=== PATIENT | male | born 1995 ===

== ENCOUNTER 2017-06-18 18:29 | Emergency (ER) | payer SELFPAY ==
[2017-06-18 18:46] VITALS: TEMP 98.2; O2SAT 100
--- NOTE | 2017-06-18 19:29 | ED PDOC ---
Arrival/HPI <Petros Rhoades - Last Filed: 06/18/17 20:19> <Steven Alcantara - Last Filed: 06/18/17 20:31> - General Chief Complaint: Seizure Time Seen by Provider: 06/18/17 19:09 - History of Present Illness Narrative History of Present Illness (Text): 06/18/17 19:25 CC: four episodes of seizures Citizen Of [place] Speaking only This patient is a 21 year old male who is a PMhx of epilepsy, who states he had four seizures today. He says they were witnessed by his grandmother, who is not at the bedside to confer the story. He states he has not been to a doctor in "many years" and has been taking carbamazepine TIDmg. He states he was lifting a heavy box at work today, started to have back pain, and after that had "four episodes of seizures". denies biting tongue, urination, defecation. States pain is in his mid back only, does not radiate anywhere. Continent of urine and feces. denies all other symptoms; fevers/chills, EDWARD, CP, SOb, abdominal pain, N/ V/D, dysuria/freq/urg, or lower extremity pain/swelling. Patient is able to ambulate without problem. 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; denies EtOH, smoking, or other illicit drugs (Petros Rhoades) Past Medical History - Provider Review Nursing Documentation Reviewed: Yes - Travel History Have you recently traveled outside [place] w/in the past 3 mons?: No - Infectious Disease Hx of Infectious Diseases: None - Neurological Hx Seizures: Yes - Musculoskeletal/Rheumatological Other/Comment: CP - Psychiatric Hx Substance Use: No <Petros Rhoades - Last Filed: 06/18/17 20:19> Family/Social History - Physician Review Nursing Documentation Reviewed: Yes Family/Social History: No Known Family HX Smoking Status: Never Smoked Hx Alcohol Use: No Hx Substance Use: No <Petros Rhoades - Last Filed: 06/18/17 20:19> Allergies/Home Meds <Petros Rhoades - Last Filed: 06/18/17 20:19> <Steven Alcantara - Last Filed: 06/18/17 20:31> Allergies/Adverse Reactions: Allergies No Known Allergies Allergy (Verified 06/18/17 18:46) Home Medications: Home Meds Medication Instructions Recorded Confirmed carBAMazepine [TEGretol] 200 mg PO TID 06/18/17 06/18/17 Review of Systems - Review of Systems Constitutional: absent: Fatigue, Weight Change Eyes: absent: Vision Changes, Photophobia ENT: absent: Hearing Changes, Tinnitus Respiratory: absent: SOB, Cough, Sputum Cardiovascular: absent: Chest Pain Gastrointestinal: absent: Abdominal Pain Genitourinary Male: absent: Dysuria, Frequency Musculoskeletal: absent: Arthralgias, Back Pain Skin: absent: Rash, Pruritis Neurological: Seizure. absent: Headache, Dizziness, Focal Weakness, Gait Changes, Speech Changes, Facial Droop, Disequilibrium Endocrine: absent: Diaphoresis, Polyuria Hemo/Lymphatic: absent: Adenopathy, Easy Bleeding Psychiatric: absent: Anxiety, Depression <Petros Rhoades - Last Filed: 06/18/17 20:19> Physical Exam Temperature: Afebrile Blood Pressure: Normal Pulse: Regular Respiratory Rate: Normal Appearance: Positive for: Well-Appearing Mental Status: Positive for: Alert and Oriented X 3 - Systems Exam Head: Present: Atraumatic, Normocephalic Pupils: Present: PERRL Extroacular Muscles: Present: EOMI Conjunctiva: Present: Normal Mouth: Present: Moist Mucous Membranes Neck: Present: Normal Range of Motion. No: Meningeal Signs Respiratory/Chest: Present: Clear to Auscultation, Good Air Exchange Cardiovascular: Present: Regular Rate and Rhythm, Normal S1, S2. No: Murmurs Abdomen: Present: Normal Bowel Sounds. No: Tenderness, Distention Back: No: CVA Tenderness Upper Extremity: Present: Normal Inspection. No: Cyanosis, Edema Lower Extremity: Present: Normal Inspection. No: Edema Neurological: Present: GCS=15, CN II-XII Intact Skin: Present: Warm Psychiatric: Present: Alert, Oriented x 3, Normal Insight, Normal Concentration , Normal Affect. No: Suicidal Ideation, Intoxicated, Lethargic <Petros Rhoades - Last Filed: 06/18/17 20:19> Medical Decision Making <Petros Rhoades - Last Filed: 06/18/17 20:19> <Steven Alcantara - Last Filed: 06/18/17 20:31> ED Course and Treatment: 06/18/17 19:32 Will check carbamazepine level, CBC CPK CMP Mag Phos patient is able to ambulate without problem speaking coherently re-assess and dispo Therapeutic concentrations of carbamazepine range from 4 to 12 mcg/mL (17 to 51 micromol/L). ddx; break through seizures vs low carbamazepine level vs seeking primary care 06/18/17 19:57 CBC WNL 06/18/17 20:07 Carbamezepine level is 10 CMP wnl CPK WNL 06/18/17 20:15 The patient is stable for d/c as per Dr. Alcantara The patient was lifting a heavy box earlier at work and has back pain the patient was told to take ibuprofen OTC for back pain as it is indicated on the bottle he was agreeable with this plan He was told to set up an appointment at the [facility] [place] [facility] [place], and for neurology follow up afterwords (Petros Rhoades) - Lab Interpretations Lab Results: 06/18/17 18:51 06/18/17 18:51 Lab Results 06/18/17 18:51: Carbamazepine 10 06/18/17 18:51: Sodium 141, Potassium 4.4, Chloride 96, Carbon Dioxide 31, Anion Gap 18, BUN 11, Creatinine 0.8, Est GFR ( Amer) > 60, Est GFR (Non- Af Amer) > 60, Random Glucose 91, Calcium 9.5, Phosphorus 5.2 H, Magnesium 2.0, Total Bilirubin 0.4, AST 40, ALT 42, Alkaline Phosphatase 54, Total Creatine Kinase 128, Total Protein 9.1 H, Albumin 5.0 H, Globulin 4.1, Albumin/Globulin Ratio 1.2 06/18/17 18:51: WBC 9.8, RBC 5.10, Hgb 16.3, Hct 45.5, MCV 89.2, MCH 32.0, MCHC 35.8, RDW 12.3, Plt Count 290, MPV 10.1 - 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 YAMEL has examined the patient and agrees with the treatment plan. <Steven Alcantara - Last Filed: 06/18/17 20:31> Disposition/Present on Arrival - Present on Arrival Any Indicators Present on Arrival: No History of DVT/PE: No History of Uncontrolled Diabetes: No Urinary Catheter: No History of Decub. Ulcer: No History Surgical Site Infection Following: None - Disposition Have Diagnosis and Disposition been Completed?: Yes Disposition Time: 20:20 Patient Plan: Discharge <Petros Rhoades - Last Filed: 06/18/17 20:19> <Steven Alcantara - Last Filed: 06/18/17 20:31> - Disposition Diagnosis: Back pain Disposition: HOME/ ROUTINE Condition: FAIR Discharge Instructions (ExitCare): Back Pain (ED) Additional Instructions: Por favor, jayy angelic shree en el [facility] aqui en el [facility] hospital. [place] es [phone] Ellos van ayudarte con todos los medicos que va necesitar despues tambien Eve romero medicamento shane esta indicado Prescriptions: Ibuprofen [Motrin Tab] 600 mg PO TID PRN #20 tab PRN Reason: Pain, Mild (1-3) Referrals: PCP,NO [Primary Care Provider] - Follow up with primary Forms: [place] (Citizen Of [place])
[2017-06-18 19:46] LABS: HEMOGLOBIN 16.3 gm/dL (14.0-18.0); MEAN CELL VOLUME 89.2 fL (80.0-105.0); MEAN CORPUSCULAR HGB CONC 35.8 g/dl (31.0-37.0); MEAN PLATELET VOLUME 10.1 fl (7.0-11.0); RBC 5.1 10^6/uL (3.5-6.1); RED CELL DISTRIBUTION WIDTH 12.3 % (11.5-14.5); WHITE BLOOD COUNT 9.8 10^3/ul (4.5-11.0)
[2017-06-18 19:56] LABS: ALB/GLOB RATIO 1.2 (1.1-1.8); ALT/SGPT 42 U/L (7-56); AST/SGOT 40 U/L (15-59); BLOOD UREA NITROGEN 11 mg/dL (7-21); CALCIUM 9.5 mg/dL (8.4-10.5); GFR AFRICAN-AMERICAN > 60; GFR NON-AFRICAN AMERICAN > 60
[2017-06-18 20:40] VITALS: BP 131/73; PULSE 71; RESP 18
== END 2017-06-18 20:38 | disposition home or self-care (01) ==
LOC: ED 18:29
DX: M54.9 Dorsalgia, unspecified (principal)

== ENCOUNTER 2017-11-25 07:25 | Emergency (ER) | payer OTHER ==
[2017-11-25] MEDS ORDERED: Sodium Chloride 0.9% 500 ML IV STA (08:04)
--- NOTE | 2017-11-25 08:07 | ED PDOC ---
Arrival/HPI - General Chief Complaint: Seizure Time Seen by Provider: 11/25/17 07:59 Historian: Patient, Parent (mother) EM Caveat: Language Barrier (scribe translating) - History of Present Illness Narrative History of Present Illness (Text): 11/25/17 08:00 Artur White is a 22 year old male, whose past medical history includes seizure disorder (on Keppra and Tegretol), who presents to the emergency department accompanied with mother s/p seizure episode at 04:00 this morning. Mother reports last seizure occurred on 10/09/2017. Additionally, she states patient has not seen a neurologist. The episode lasted about 2 minutes and patient became alert 2 minutes s/p the seizure episode. Mother notes the seizure occurred while patient was in bed. Currently patient has no complaints. Patient denies prodromal chest pain, shortness of breath, dizziness, lightheadedness or palpitations. Patient denies any chest pain, shortness of breath, headache, nausea, vomiting, diarrhea, fever, chills, cough, visual changes, tongue biting , bowel/bladder incontinence or head injury. Time/Duration: Prior to Arrival, 1-3 hours Symptom Onset: Sudden Symptom Course: Improving Activities at Onset: Rest Context: Home Past Medical History - Provider Review Nursing Documentation Reviewed: Yes - Travel History Have you recently traveled outside US w/in the past 3 mons?: No - Past History Past History: No Previous - Infectious Disease Hx of Infectious Diseases: None - Neurological Hx Seizures: Yes - Musculoskeletal/Rheumatological Other/Comment: CP - Psychiatric Hx Substance Use: No Family/Social History - Physician Review Nursing Documentation Reviewed: Yes Family/Social History: Unknown Family HX Smoking Status: Never Smoked Hx Alcohol Use: No Hx Substance Use: No Allergies/Home Meds Allergies/Adverse Reactions: Allergies No Known Allergies Allergy (Verified 06/18/17 18:46) Home Medications: Home Meds Medication Instructions Recorded Confirmed carBAMazepine [TEGretol] 400 mg PO BID 06/18/17 11/25/17 Levetiracetam [Roweepra] 1,000 mg PO BID 11/25/17 11/25/17 Review of Systems - Review of Systems Constitutional: absent: Fevers Eyes: absent: Vision Changes Respiratory: absent: SOB, Cough Cardiovascular: absent: Chest Pain Gastrointestinal: absent: Abdominal Pain Genitourinary Male: absent: Dysuria, Frequency, Urinary Output Changes Musculoskeletal: absent: Neck Pain Neurological: Seizure. absent: Headache, Dizziness Physical Exam Vital Signs Reviewed: Yes (WNL) Vital Signs Temp Pulse Resp BP Pulse Ox 11/25/17 11:09 79 18 122/75 97 11/25/17 08:09 98.7 F 88 16 124/89 99 Temperature: Afebrile Blood Pressure: Normal Pulse: Regular Respiratory Rate: Normal Appearance: Positive for: Well-Appearing, Non-Toxic, Comfortable, Other ( resting in bed, NAD, alert/awake, GCS = 15, oriented x 3) Pain Distress: None Mental Status: Positive for: Alert and Oriented X 3 - Systems Exam Head: Present: Atraumatic, Normocephalic Pupils: Present: PERRL, Other (no photophobia, sclera anicteric, no nystagmus, visual field intact b/l) Extroacular Muscles: Present: EOMI Conjunctiva: Present: Normal Ears: Present: Normal, NORMAL TM Mouth: Present: Moist Mucous Membranes, Normal Teeth, Other (no tongue laceration/abrasions noted, uvula/tongue are midline, no drooling/stridor; intact dentitions) Pharnyx: Present: Normal Nose (External): Present: Atraumatic Neck: Present: Normal Range of Motion, Trachea Midline. No: MIDLINE TENDERNESS Respiratory/Chest: Present: Clear to Auscultation, Good Air Exchange, Other ( CTA b/l, no w/r/r, no tachypenia, no accessory muscle use noted). No: Respiratory Distress, Accessory Muscle Use Cardiovascular: Present: Regular Rate and Rhythm, Normal S1, S2. No: Murmurs Abdomen: Present: Normal Bowel Sounds, Other (well nourished male, no focal tenderness, no masses/rebound/guarding/rigidity, no gardner's sign, no mcburney' s point tenderness). No: Tenderness, Distention, Peritoneal Signs Back: Present: Normal Inspection. No: Midline Tenderness Upper Extremity: Present: Normal Inspection, Normal ROM, NORMAL PULSES, Neurovascularly Intact, Capillary Refill < 2s. No: Cyanosis, Edema Lower Extremity: Present: Normal Inspection, NORMAL PULSES, Normal ROM, Neurovascularly Intact, Capillary Refill < 2 s. No: Edema Neurological: Present: GCS=15, CN II-XII Intact, Speech Normal, Normal Cerebellar Funct, Other (CNII-XII WNL, no facial asymmetries, no slurr speech, NIH stroke scale ~ 0) Skin: Present: Warm, Dry, Normal Color. No: Rashes Psychiatric: Present: Alert, Oriented x 3, Normal Insight, Normal Concentration Medical Decision Making ED Course and Treatment: 11/25/17 Impression: 22 year old male with seizure episode at 04:00 this morning. Patient's currently on Keppra I have considered all Differential Diagnosis regarding pt's chief medical complaints/clinical findings included but are not limited to: recurrent seizure; medication non-compliance?; unlikely traumatic; unlikely meningitis. 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 Prajapati who is the on-call neurologist. He recommends patient to follow up with Dr. Robles who is located in [place]. He currently does not recommend any dosage or frequency changes in pt's medication, however patient should f.u with outpatient neuro as soon as possible. patient agrees with medical management. 11/25/17 12:07 pt/mother are made aware of pt's medical results pt is encouraged fluids pt will f/u as directed pt will be discharged home Re-evaluation Time: 10:01 Reassessment Condition: Improved - Lab Interpretations Lab Results: 11/25/17 08:30 11/25/17 08:30 Lab Results 11/25/17 10:30: Influenza Typ A,B (EIA) Negative for flu a/b 11/25/17 08:30: Carbamazepine 13 H* 11/25/17 08:30: Sodium 141, Potassium 4.9, Chloride 101, Carbon Dioxide 28, Anion Gap 17, BUN 7, Creatinine 0.7 L, Est GFR ( Amer) > 60, Est GFR (Non -Af Amer) > 60, Random Glucose 100, Calcium 10.3, Total Bilirubin 0.4, AST 40, ALT 38, Alkaline Phosphatase 59, Total Protein 8.6 H, Albumin 5.0 H, Globulin 3.6, Albumin/Globulin Ratio 1.4 11/25/17 08:30: WBC 7.9, RBC 5.10, Hgb 15.6, Hct 45.9, MCV 90.0, MCH 30.6, MCHC 34.0, RDW 12.2, Plt Count 272, MPV 10.3, Gran % 77.6 H, Lymph % (Auto) 17.2 L, [place] % (Auto) 4.7, Eos % (Auto) 0.4 L, Baso % (Auto) 0.1, Gran # 6.12, Lymph # 1.4, [place] # 0.4, Eos # 0.0, Baso # 0.01 WNL except elevated tegretol I have reviewed the lab results: Yes Interpretation: Abnormal lab values - Medication Orders Current Medication Orders: Discontinued Medications Sodium Chloride (Sodium Chloride 0.9%) 500 mls @ 999 mls/hr IV .Q31M STA Stop: 11/25/17 08:34 Last Admin: 11/25/17 08:37 Dose: 999 mls/hr eMAR Start Stop Document 11/25/17 08:37 MS (Rec: 11/25/17 08:38 MS [id number]) Intravenous Solution Start Date 11/25/17 Start Time 08:37 - Scribe Statement The provider has reviewed the documentation as recorded by the Andressa Day Provider Scribe Attestation: All medical record entries made by the Scribe were at my direction and personally dictated by me. I have reviewed the chart and agree that the record accurately reflects my personal performance of the history, physical exam, medical decision making, and the department course for this patient. I have also personally directed, reviewed, and agree with the discharge instructions and disposition. Disposition/Present on Arrival - Present on Arrival Any Indicators Present on Arrival: No History of DVT/PE: No History of Uncontrolled Diabetes: No Urinary Catheter: No History Surgical Site Infection Following: None - Disposition Have Diagnosis and Disposition been Completed?: Yes Diagnosis: Recurrent seizures Disposition: HOME/ ROUTINE Disposition Time: 10:01 Patient Plan: Discharge Patient Problems: Current Active Problems Problem Status Onset Recurrent seizures Acute Condition: STABLE Discharge Instructions (ExitCare): Recurrent Seizures in Adults (ED) Print Language: BELARUSIAN Additional Instructions: Make sure to see your doctor in 1-2 days DRINK PLENTY OF FLUIDS take your medications as prescribed RETURN TO ED IF worse pain, cant breath, persistent vomiting, persistent headaches, persistent seizures; high fever >101-102 for hours, altered behavior , unable to urinate, heavy/persistent bleeding, passing out, chest pain, or other medical emergencies Referrals: Florentin Prajapati MD [Staff Provider] - Follow up with primary Kevin Robles MD [Staff Provider] - Follow up with primary Forms: [employer] ([place]), Behavio (Russian)
[2017-11-25 08:09] VITALS: BMI 21.8
[2017-11-25 08:13] VITALS: TEMP 98.7
[2017-11-25 09:01] LABS: BASO # 0.01 K/mm3 (0.0-2.0); BASO % 0.1 % (0.0-3.0); EOS % 0.4 % (1.5-5.0); GRAN # 6.12 (1.4-6.5); GRAN % 77.6 % (50.0-68.0); HEMOGLOBIN 15.6 g/dL (14.0-18.0); LYMPH # 1.4 (1.2-3.4); LYMPH % 17.2 % (22.0-35.0); MEAN CORPUSCULAR HEMOGLOBIN 30.6 pg (25.0-35.0); MEAN PLATELET VOLUME 10.3 fl (7.0-11.0); MONO # 0.4 (0.1-0.6); MONO % 4.7 % (1.0-6.0); RBC 5.1 10^6/uL (3.5-6.1); RED CELL DISTRIBUTION WIDTH 12.2 % (11.5-14.5); WHITE BLOOD COUNT 7.9 10^3/ul (4.5-11.0)
[2017-11-25 09:12] LABS: ALT/SGPT 38 U/L (7-56); AST/SGOT 40 U/L (17-59); BLOOD UREA NITROGEN 7 mg/dL (7-21); CALCIUM 10.3 mg/dL (8.4-10.5); GFR AFRICAN-AMERICAN > 60; GFR NON-AFRICAN AMERICAN > 60
[2017-11-25 09:15] LABS: ALB/GLOB RATIO 1.4 (1.1-1.8)
[2017-11-25 12:04] VITALS: BP 140/88; PULSE 70; RESP 16; O2SAT 99
[2017-11-25 23:10] LABS: URINE BILIRUBIN NEGATIVE (NEGATIVE); URINE BLOOD NEGATIVE (NEGATIVE); URINE GLUCOSE (UA) NEGATIVE (NEGATIVE); URINE LEUKOCYTE ESTERASE NEGATIVE Leu/uL (NEGATIVE); URINE NITRATE NEGATIVE (NEGATIVE); URINE PROTEIN NEGATIVE mg/dL (<30 mg/dL); URINE UROBILINOGEN 0.2 E.U./dL (<1 E.U./dL)
[2017-11-25 23:16] LABS: URINE APPEARANCE CLEAR (CLEAR); URINE COLOR YELLOW (YELLOW)
[2017-11-28 07:56] LABS: LEVETIRACETAM 29.2 mcg/mL
== END 2017-11-25 12:04 | disposition home or self-care (01) ==
LOC: ED 07:25
DX: G40.909 Epilepsy, unspecified, not intractable, without status epilepticus (principal)
CPT/HCPCS: 80053; 80156; 80299; 81003; 85025; 87804; 99285; J7040

== ENCOUNTER 2018-03-09 21:22 | Inpatient (IN) | payer MEDICAID, OTHER ==
[2018-03-09 21:36] VITALS: O2SAT 100
[2018-03-09 21:56] VITALS: BMI 24.0
[2018-03-09] MEDS ORDERED: Sodium Chloride 0.9% 1,000 ML IV STA (22:09)
--- NOTE | 2018-03-09 22:13 | ED PDOC ---
Arrival/HPI - General Chief Complaint: Seizure Time Seen by Provider: 03/09/18 21:35 Historian: Patient, Parent EM Caveat: Language Barrier (Sapnish Speaking) - History of Present Illness Narrative History of Present Illness (Text): 03/09/18 22:10 22 year old male, whose past medical history includes seizure disorder (on Keppra and Levetiracetam) and history of 3 hodge in the past, presents to the emergency department s/p seizure-like activity today. Patient does not speak any Malagasy and is accompanied with mother who also does not speak any Malagasy. They recently moved to the [facility] 8 months ago and has [place] [facility] [place], but never admitted. [place] [facility] [place], but can not recall the specific date. Patient only takes seizure medication, and denies any other medication. Patient denies any fever, chills, chest pain, shortness of breath, abdominal pain, nausea, vomiting, diarrhea, urinary symptoms, back pain, neck pain, headache, dizziness, or any other complaints. Time/Duration: 1 hour Symptom Onset: Sudden Activities at Onset: Light Context: Home Past Medical History - Provider Review Nursing Documentation Reviewed: Yes - Past History Past History: No Previous - Infectious Disease Hx of Infectious Diseases: None - Cardiac Hx Cardiac Disorders: No - Pulmonary Hx Respiratory Disorders: No - Neurological Hx Neurological Disorder: Yes HX Cerebrovascular Accident: Yes (3 strokes) Hx Seizures: Yes - HEENT Hx HEENT Disorder: No - Renal Hx Renal Disorder: No - Endocrine/Metabolic Hx Endocrine Disorders: No - Hematological/Oncological Hx Blood Disorders: No - Integumentary Hx Dermatological Disorder: No - Musculoskeletal/Rheumatological Hx Musculoskeletal Disorders: Yes Other/Comment: CP - Gastrointestinal Hx Gastrointestinal Disorders: No - Genitourinary/Gynecological Hx Genitourinary Disorders: No - Psychiatric Hx Psychophysiologic Disorder: No Hx Substance Use: No Family/Social History - Physician Review Nursing Documentation Reviewed: Yes Family/Social History: No Known Family HX Smoking Status: Never Smoked Hx Alcohol Use: No Hx Substance Use: No Allergies/Home Meds Allergies/Adverse Reactions: Allergies No Known Allergies Allergy (Verified 03/09/18 22:00) Review of Systems - Physician Review All systems were reviewed & negative as marked: Yes - Review of Systems Constitutional: absent: Fevers, Other (Chills) Respiratory: absent: SOB Cardiovascular: absent: Chest Pain Gastrointestinal: absent: Abdominal Pain, Diarrhea, Nausea, Vomiting Genitourinary Male: absent: Dysuria, Frequency, Hematuria Neurological: Seizure (Seizure like symptoms). absent: Headache, Dizziness Physical Exam Vital Signs Reviewed: Yes Vital Signs Temp Pulse Resp BP Pulse Ox 03/10/18 02:00 98.2 F 72 18 120/67 100 03/09/18 21:35 98.2 F 69 18 132/57 L 100 Temperature: Afebrile Blood Pressure: Normal Pulse: Regular Respiratory Rate: Normal Appearance: Positive for: Well-Appearing, Non-Toxic, Comfortable Pain Distress: None Mental Status: Positive for: Alert and Oriented X 3 - Systems Exam Head: Present: Atraumatic, Normocephalic Pupils: Present: PERRL Extroacular Muscles: Present: EOMI Conjunctiva: Present: Normal Mouth: Present: Moist Mucous Membranes Neck: Present: Normal Range of Motion Respiratory/Chest: Present: Clear to Auscultation, Good Air Exchange. No: Respiratory Distress, Accessory Muscle Use Cardiovascular: Present: Regular Rate and Rhythm, Normal S1, S2. No: Murmurs Abdomen: No: Tenderness, Distention, Peritoneal Signs Back: Present: Normal Inspection Upper Extremity: Present: Normal Inspection. No: Cyanosis, Edema Lower Extremity: Present: Normal Inspection. No: Edema Neurological: Present: GCS=15, CN II-XII Intact, Speech Normal Skin: Present: Warm, Dry, Normal Color. No: Rashes Psychiatric: Present: Alert, Oriented x 3, Normal Insight, Normal Concentration Medical Decision Making ED Course and Treatment: 03/09/18 22:00 Impression: 22 year old male presents for evaluation s/p seizure like symptoms. Patient has past medical history of 3 hodge in the past and seizure disorder (on Keppra and Levetiracetam) Plan: -- CT head w/o contrast -- Labs -- Levetiracetam -- IV Fluids -- Urinalysis -- Reassess and disposition Prior Visits: Notes and results from previous visits were reviewed. On 11/25/17 patient came in complaining of seizure episode this morning. Patient was discharged. Progress Notes: EXAM: CT Head Without Intravenous Contrast Dictated and Authenticated by: Dian Hsieh MD 03/09/2018 11:19 PM IMPRESSION: Large area of low density in the left cerebral hemisphere with associated ex vacuo dilatation of the left lateral ventricle likely represents encephalomalacia from prior infarct. No hemorrhage. 03/10/18 00:20 Case discussed with Cvicu Rn and Dr. Heredia who is aware and agrees with the plan. Accepts patient into his service. - Lab Interpretations Lab Results: 03/09/18 23:05 03/09/18 23:05 Lab Results 03/09/18 23:05: Phosphorus 4.8 H, Magnesium 2.0 03/09/18 23:05: Alcohol, Quantitative < 10 03/09/18 23:05: Carbamazepine 13 H* 03/09/18 23:05: Sodium 138, Potassium 4.0, Chloride 99, Carbon Dioxide 25, Anion Gap 18, BUN 11, Creatinine 0.8, Est GFR ( Amer) > 60, Est GFR (Non- Af Amer) > 60, Random Glucose 89, Calcium 9.2, Total Bilirubin 0.3, AST 28, ALT 34, Alkaline Phosphatase 50, Total Protein 8.2, Albumin 4.7, Globulin 3.5, Albumin/Globulin Ratio 1.3 03/09/18 23:05: PT 15.0 H, INR 1.31 H 03/09/18 23:05: WBC 10.3 D, RBC 4.85, Hgb 14.9, Hct 42.6, MCV 87.8, MCH 30.7, MCHC 35.0, RDW 12.1, Plt Count 240, MPV 10.0, Gran % 71.4 H, Lymph % (Auto) 21.8 L, Tate % (Auto) 4.6, Eos % (Auto) 2.1, Baso % (Auto) 0.1, Gran # 7.36 H, Lymph # (Auto) 2.3, Tate # (Auto) 0.5, Eos # (Auto) 0.2, Baso # (Auto) 0.01 I have reviewed the lab results: Yes - RAD Interpretation Radiology Orders: 03/09/18 22:12 HEAD W/O CONTRAST [CT] Stat - Medication Orders Current Medication Orders: Discontinued Medications Sodium Chloride (Sodium Chloride 0.9%) 1,000 mls @ 999 mls/hr IV .Q1H1M STA Stop: 03/09/18 23:09 Last Admin: 03/09/18 23:09 Dose: 999 mls/hr eMAR Start Stop Document 03/09/18 23:09 HI (Rec: 03/09/18 23:09 HI [id number]) Intravenous Solution Start Date 03/09/18 Start Time 23:09 Sodium Chloride (Sodium Chloride 0.9%) 1,000 mls @ 999 mls/hr IV .Q1H1M STA Stop: 03/10/18 02:40 Last Admin: 03/10/18 02:26 Dose: 999 mls/hr eMAR Start Stop Document 03/10/18 02:26 LEONEL (Rec: 03/10/18 02:26 LEONEL [id number] Intravenous Solution Start Date 03/10/18 Start Time 02:26 Levetiracetam 1,000 mg/ Sodium (Chloride) 110 mls @ 460 mls/hr IV Q12 ALEXANDRA Last Admin: 03/10/18 10:42 Dose: 460 mls/hr eMAR Start Stop Document 03/10/18 10:42 JA (Rec: 03/10/18 10:42 JA [id number]) Intravenous Solution Start Date 03/10/18 Start Time 10:42 Levetiracetam 1,500 mg/ Sodium (Chloride) 115 mls @ 460 mls/hr IV Q12 ALEXANDRA Last Admin: 03/12/18 09:52 Dose: 460 mls/hr eMAR Start Stop Document 03/12/18 09:52 MCV (Rec: 03/12/18 09:52 MCV [id number]) Intravenous Solution Start Date 03/12/18 Start Time 09:52 Sodium Chloride (Sodium Chloride 0.9%) 1,000 mls @ 75 mls/hr IV .[id number] ALEXANDRA Last Admin: 03/11/18 05:52 Dose: 75 mls/hr eMAR Start Stop Document 03/11/18 05:52 CO (Rec: 03/11/18 05:53 CO [id number]) Intravenous Solution Start Date 03/11/18 Start Time 05:53 Lorazepam (Ativan) 3 mg IVP Q6H PRN; Protocol PRN Reason: Seizure activity Pantoprazole Sodium (Protonix Inj) 40 mg IVP DAILY ALEXANDRA Last Admin: 03/12/18 09:52 Dose: 40 mg IVP Administration Document 03/12/18 09:52 MCV (Rec: 03/12/18 09:52 [id number]) Charges for Administration # of IVP Administrations 1 Valproate Sodium (Depakene Cap) 500 mg PO DAILY [facility] Last Admin: 03/10/18 16:15 Dose: Valproate Sodium (Depakene Cap) 500 mg PO BID [facility] Valproate Sodium (Depakene Cap) 500 mg PO BID [facility] Last Admin: 03/12/18 17:28 Dose: 500 mg - Scribe Statement The provider has reviewed the documentation as recorded by the Andressa Munson Provider Scribe Attestation: All medical record entries made by the Andressa were at my direction and personally dictated by me. I have reviewed the chart and agree that the record accurately reflects my personal performance of the history, physical exam, medical decision making, and the department course for this patient. I have also personally directed, reviewed, and agree with the discharge instructions and disposition. Disposition/Present on Arrival - Present on Arrival Any Indicators Present on Arrival: No History of DVT/PE: No History of Uncontrolled Diabetes: No Urinary Catheter: No History of Decub. Ulcer: No History Surgical Site Infection Following: None - Disposition Have Diagnosis and Disposition been Completed?: Yes Diagnosis: Epilepsy, Seizure disorder, Encephalomalacia Disposition: HOSPITALIZED Disposition Time: 00:00 Patient Plan: Admission Condition: GOOD
[2018-03-09] MEDS ORDERED: Iohexol 240 (50 ml) ONE (22:14)
[2018-03-09 23:18] LABS: BASO # 0.01 K/mm3 (0.0-2.0); BASO % 0.1 % (0.0-3.0); EOS # 0.2 (0.0-0.7); EOS % 2.1 % (1.5-5.0); GRAN # 7.36 (1.4-6.5); GRAN % 71.4 % (50.0-68.0); HEMOGLOBIN 14.9 g/dL (14.0-18.0); LYMPH # 2.3 (1.2-3.4); LYMPH % 21.8 % (22.0-35.0); MEAN CELL VOLUME 87.8 fl (80.0-105.0); MEAN CORPUSCULAR HEMOGLOBIN 30.7 pg (25.0-35.0); MONO # 0.5 (0.1-0.6); MONO % 4.6 % (1.0-6.0); RBC 4.85 10^6/uL (3.5-6.1); RED CELL DISTRIBUTION WIDTH 12.1 % (11.5-14.5); WHITE BLOOD COUNT 10.3 10^3/ul (4.5-11.0)
[2018-03-09 23:33] LABS: ALB/GLOB RATIO 1.3 (1.1-1.8); ALBUMIN 4.7 g/dL (3.0-4.8); ALT/SGPT 34 U/L (7-56); AST/SGOT 28 U/L (17-59); BLOOD UREA NITROGEN 11 mg/dL (7-21); CALCIUM 9.2 mg/dL (8.4-10.5); GFR AFRICAN-AMERICAN > 60; GFR NON-AFRICAN AMERICAN > 60; INR 1.31 (0.93-1.08)
[2018-03-10] MEDS ORDERED: Sodium Chloride 0.9% 1,000 ML IV STA (01:40)
[2018-03-10] MEDS ORDERED: Sodium Chloride 0.9% 1,000 ML IV SCH (01:45)
--- NOTE | 2018-03-10 02:52 | CP.PCM.HP ---
History of Present Illness - History of Present Illness History of Present Illness: Yasmeen Trejo, PGY1, H&P for Dr Heredia: CC: seizure 22 year old male, with PMH seizure disorder, presents s/p 3 seizures today. HPI obtained from mother at bedside and patient. Patient was in his usual state of health until this morning. When pt woke up at 6 AM, pt then had a seizure episodes with rhythmic movements of right arm and pt jerking backwards for 2-3 minutes, with postictal state of confusion lasting for 2 minutes. Denies tongue biting, urinary/bowel incontinence, prodromal symptoms, dizziness, lightheadedness. This seizure was witnessed by the patient's mother. Pt then had another seizure episode in the afternoon and another at 8 PM, which prompted pt to come to ED. Denies fever, chills, headache, nausea, vomiting, abdominal pain, cp, palpitations, diarrhea, constipation, leg swelling, urinary symptoms. In ED, vitals stable. Carbamazepine level elevated 13, alcohol neg. 1L NS bolus given in ED. 12 point ROS obtained and negative, except as per HPI. PMH: seizure disorder (diagnosed at age 8) PSH: denies NKA FH: nephew, seizures, cerebral palsy SH: recently moved to [place] 8 months ago. Lives with mother/grandfather. Denies ETOH/drug/tobacco use. Home Meds: Keppra 1000 mg PO BID, tegretol 400 mg PO BID Present on Admission - Present on Admission Any Indicators Present on Admission: No History of DVT/PE: No History of Uncontrolled Diabetes: No Urinary Catheter: No Decubitus Ulcer Present: No Review of Systems - Review of Systems All systems: reviewed and no additional remarkable complaints except Review of Systems: as per HPI Past Patient History - Infectious Disease Hx of Infectious Diseases: None - Past Social History Smoking Status: Never Smoked - CARDIAC Hx Cardiac Disorders: No - PULMONARY Hx Respiratory Disorders: No - NEUROLOGICAL Hx Neurological Disorder: Yes HX Cerebrovascular Accident: Yes (3 strokes) Hx Seizures: Yes - HEENT Hx HEENT Problems: No - RENAL Hx Chronic Kidney Disease: No - ENDOCRINE/METABOLIC Hx Endocrine Disorders: No - HEMATOLOGICAL/ONCOLOGICAL Hx Blood Disorders: No - INTEGUMENTARY Hx Dermatological Problems: No - MUSCULOSKELETAL/RHEUMATOLOGICAL Hx Musculoskeletal Disorders: Yes Other/Comment: CP - GASTROINTESTINAL Hx Gastrointestinal Disorders: No - GENITOURINARY/GYNECOLOGICAL Hx Genitourinary Disorders: No - PSYCHIATRIC Hx Psychophysiologic Disorder: No Hx Substance Use: No - SURGICAL HISTORY Hx Surgeries: No Meds Allergies/Adverse Reactions: Allergies Allergy/AdvReac Type Severity Reaction Status Date / Time No Known Allergies Allergy Verified 03/09/18 22:00 Physical Exam - Constitutional Appears: Non-toxic, No Acute Distress Additional comments: drowsy - Head Exam Head Exam: ATRAUMATIC, NORMOCEPHALIC - Eye Exam Eye Exam: EOMI, PERRL. absent: Conjunctival injection, Nystagmus, Periorbital swelling, Periorbital tenderness, Scleral icterus Pupil Exam: NORMAL ACCOMODATION, PERRL. absent: Fixed, Irregular, Miosis, Mydriatic, Unequal - ENT Exam ENT Exam: Mucous Membranes Moist, Normal Exam. absent: Mucous Membranes Dry - Neck Exam Neck exam: Positive for: Full Rom - Respiratory Exam Respiratory Exam: Clear to Auscultation Bilateral, NORMAL BREATHING PATTERN. absent: Accessory Muscle Use, Chest Wall Tenderness, Rales, Rhonchi, Wheezes, Stridor - Cardiovascular Exam Cardiovascular Exam: RRR, +S1, +S2. absent: Systolic Murmur - GI/Abdominal Exam GI & Abdominal Exam: Normal Bowel Sounds, Soft. absent: Distended, Firm, Guarding, Mass, Rebound, Rigid, Tenderness - Extremities Exam Extremities exam: Positive for: normal inspection. Negative for: calf tenderness, pedal edema - Back Exam Back exam: NORMAL INSPECTION. absent: CVA tenderness (L), CVA tenderness (R) - Neurological Exam Neurological exam: Alert, CN II-XII Intact, Oriented x3, Reflexes Normal - Expanded Neurological Exam Expanded Patient oriented to: person, place, time Cranial nerves: EOM's Intact: Normal, Facial Palsey w/Forehead Movement: Normal , Facial Palsey w/o Forehead Movement: Normal, Facial Sensation: Normal, Gag Reflex: Normal, Nystagmus: Normal, Tongue Deviation: Normal Ataxia: No Cerebellar Function: Finger to Nose: Normal, Heel to Leiva: Normal Upper motor neuron: Babinski Sign: Normal, Pronator Drift: Normal Sensory exam: Lower Extremity Light Touch: Normal, Upper Extremity Light Touch: Normal Neuro motor strength exam: Left Upper Extremity: 5, Right Upper Extremity: 5, Left Lower Extremity: 5, Right Lower Extremity: 5 DTR: Achilles Tendon Left: 2+, Achilles Tendon Right: 2+, Bicep Left: 2+, Bicep Right: 2+, Patellar Left: 2+, Patellar Right: 2+ Coma Scale Eye Opening: SPONTANEOUS Coma Scale Motor Response: OBEYS COMMANDS Coma Scale Verbal: Oriented Coma Scale Total: 15 - Psychiatric Exam Additional comments: + drowsy - Skin Skin Exam: Dry, Normal Color, Warm Results - Vital Signs Recent Vital Signs: Last Vital Signs Temp 98.2 F 03/09/18 21:35 Pulse 69 03/09/18 21:35 Resp 18 03/09/18 21:35 BP 132/57 L 03/09/18 21:35 Pulse Ox 100 03/09/18 21:35 - Labs Result Diagrams: 03/09/18 23:05 03/09/18 23:05 Assessment & Plan - Assessment and Plan (Free Text) Assessment: 22 year old male with PMH seizure disorder, presents for breakthrough seizures: Seizure: - 2L NS bolus. Then IVF @ 125 - Neurocheck q4h - HOB 30 - CT head: Large area of low density in the left cerebral hemisphere with associated ex vacuo dilatation of the left lateral ventricle likely represents encephalomalacia from prior infarct. No hemorrhage. - Neurology consulted. F/u recs - Carbamazepine level 13, elevated. will hold morning dose. Can continue later per Neuro - PRN ativan for seizure activity - c/w home keppra - Consider Dilantin - Consider EEG PPX: Protonix, SCDs Diet: HHD Discussed with Dr Heredia. - Date & Time Date: 03/10/18 Time: 02:52
[2018-03-10] MEDS ORDERED: Pantoprazole 20 mg EC Tab PO SCH (06:00)
[2018-03-10 06:19] LABS: URINE BILIRUBIN NEGATIVE (NEGATIVE); URINE BLOOD NEGATIVE (NEGATIVE); URINE GLUCOSE (UA) NEGATIVE (NEGATIVE); URINE LEUKOCYTE ESTERASE NEGATIVE Leu/uL (NEGATIVE); URINE PROTEIN NEGATIVE mg/dL (<30 mg/dL); URINE UROBILINOGEN 0.2 E.U./dL (<1 E.U./dL)
[2018-03-10 06:26] LABS: URINE APPEARANCE CLEAR (CLEAR); URINE COLOR YELLOW (YELLOW)
[2018-03-10 06:51] LABS: BARBITURATES, UR NEGATIVE (NEGATIVE); BENZODIAZEPINES, UR NEGATIVE (NEGATIVE); OPIATES, UR NEGATIVE (NEGATIVE); PHENCYCLIDINE, UR NEGATIVE (NEGATIVE)
[2018-03-10 07:22] LABS: ALB/GLOB RATIO 1.3 (1.1-1.8); ALBUMIN 4.2 g/dL (3.0-4.8); ALT/SGPT 33 U/L (7-56); AST/SGOT 25 U/L (17-59); BLOOD UREA NITROGEN 10 mg/dL (7-21); CALCIUM 8.7 mg/dL (8.4-10.5); GFR AFRICAN-AMERICAN > 60; GFR NON-AFRICAN AMERICAN > 60
--- NOTE | 2018-03-10 08:26 | CT ---
PROCEDURE: CT HEAD WITHOUT CONTRAST. HISTORY: Seizure COMPARISON: None available. TECHNIQUE: Axial computed tomography images were obtained through the head/brain without intravenous contrast. Radiation dose: Total exam DLP = 904.22 mGy-cm. This CT exam was performed using one or more of the following dose reduction techniques: Automated exposure control, adjustment of the mA and/or kV according to patient size, and/or use of iterative reconstruction technique. FINDINGS: HEMORRHAGE: No acute parenchymal, subarachnoid or extra-axial hemorrhage. BRAIN: Large area of partially cystic encephalomalacia left the perisylvian region which involves the left frontal and parietal operculuar regions as well as left lateral basal ganglia and left temporal lobe. . There is associated ex vacuo dilatation of the left lateral ventricle. VENTRICLES: No obstructive hydrocephalus. CALVARIUM: There are no acute calvarial fracture seen. PARANASAL SINUSES: Unremarkable as visualized. No significant inflammatory changes. MASTOID AIR CELLS: There is a moderate-sized focus of polypoid like mucosal thickening and or retention cyst floor left maxillary antrum. Mild moderate mucosal thickening left chamber sphenoid sinus OTHER FINDINGS: Orbits and contents unremarkable IMPRESSION: No acute intracranial hemorrhage. Large partially cystic area encephalomalacia left cerebral hemisphere with ex vacuo dilatation of the left lateral ventricle as described.
[2018-03-10] MEDS ORDERED: levETIRAcetam 1,000 MG in Sodium Chloride 0.9% 100 ML IV SCH (10:00)
--- NOTE | 2018-03-10 10:08 | CP.PCM.CON ---
History of Present Illness - History of Present Illness History of Present Illness: Neurology Consult - Dr. Prajapati HPI: 22 M with a PMHx of CVA x 3, cerebral palsy and seizure disorder presented to [facility] ED with complaints of multiple seizures within a day. Pt stated that he had 3 episodes of seizure like activity: one in credit risk modeler, afternoon, and evening. Pt last episode of seizrues was roughly 2 months ago and prior to that was approx 2 months prior to that (nov) where [place] [facility] [place] as per the mother had to be induced into a coma to control his seizures. Pt states that his symptoms began suddenly without any gradual change in his health status. Pt was diagnosed with a seizure disorder at 8 years old while living in [place], he moved to the [facility] roughly 8 months ago. Pt stated he has been compliant with his medications. Pt mother witness the evening episode of seizure where she noticed jerking movements of right arm and pt jerking backwards for 2-3 minutes, with postictal state of confusion lasting for 2 minutes. Pt denied fever, chills, sob, chest pains, tongue biting, urinary/ bowel incontinence, prodromal symptoms, dizziness, lightheadedness. PMHx: seizure disorder, ?cerebral palsy, cognitive impairment PSHx: denied FamHx: nephew, seizures, cerebral palsy SHx:Denied ETOH/drug/tobacco use. Moved to 8 months ago from [facility]. 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 No restrictive diet Home Meds: Keppra 1000 mg PO BID, tegretol 400 mg PO BID PMD: Ish Koo MD, next appt scheduled for March 2018 Review of Systems - Review of Systems Review of Systems: as per HPI otherwise negative Past Patient History - Infectious Disease Hx of Infectious Diseases: None - Past Social History Smoking Status: Never Smoked - CARDIAC Hx Cardiac Disorders: No - PULMONARY Hx Respiratory Disorders: No - NEUROLOGICAL Hx Neurological Disorder: Yes HX Cerebrovascular Accident: Yes (3 strokes) Hx Seizures: Yes - HEENT Hx HEENT Problems: No - RENAL Hx Chronic Kidney Disease: No - ENDOCRINE/METABOLIC Hx Endocrine Disorders: No - HEMATOLOGICAL/ONCOLOGICAL Hx Blood Disorders: No - INTEGUMENTARY Hx Dermatological Problems: No - MUSCULOSKELETAL/RHEUMATOLOGICAL Hx Falls: No - GASTROINTESTINAL Hx Gastrointestinal Disorders: No - GENITOURINARY/GYNECOLOGICAL Hx Genitourinary Disorders: No - PSYCHIATRIC Hx Psychophysiologic Disorder: No Hx Substance Use: No - SURGICAL HISTORY Hx Surgeries: No Meds Allergies/Adverse Reactions: Allergies Allergy/AdvReac Type Severity Reaction Status Date / Time No Known Allergies Allergy Verified 03/09/18 22:00 - Medications Medications: Current Medications Sodium Chloride (Sodium Chloride 0.9%) 1,000 mls @ 125 mls/hr IV .Q8H ALEXANDRA Levetiracetam 1,000 mg/ Sodium (Chloride) 110 mls @ 460 mls/hr IV Q12 ALEXANDRA Lorazepam (Ativan) 3 mg IVP Q6H PRN; Protocol PRN Reason: Seizure activity Pantoprazole Sodium (Protonix Inj) 40 mg IVP DAILY ALEXANDRA Physical Exam - Constitutional Appears: No Acute Distress - Head Exam Head Exam: ATRAUMATIC, NORMAL INSPECTION, NORMOCEPHALIC - Eye Exam Eye Exam: EOMI, Normal appearance, PERRL Pupil Exam: NORMAL ACCOMODATION, PERRL - ENT Exam ENT Exam: Mucous Membranes Moist, Normal Exam - Respiratory Exam Respiratory Exam: Clear to Auscultation Bilateral, NORMAL BREATHING PATTERN - Cardiovascular Exam Cardiovascular Exam: REGULAR RHYTHM, +S1, +S2 - GI/Abdominal Exam GI & Abdominal Exam: Normal Bowel Sounds, Soft. absent: Tenderness - Extremities Exam Extremities exam: Positive for: normal inspection - Neurological Exam Neurological exam: Alert, CN II-XII Intact, Normal Gait, Oriented x3, Reflexes Normal - Expanded Neurological Exam Expanded Neurological exam: Protecting the Airway Patient oriented to: person, place, time Cerebellar Function: Finger to Nose: Normal, Romberg: Normal Upper motor neuron: Babinski Sign: Normal, Pronator Drift: Normal Neuro motor strength exam: Left Upper Extremity: 5, Right Upper Extremity: 5, Left Lower Extremity: 5, Right Lower Extremity: 5 DTR: Achilles Tendon Left: 2+, Achilles Tendon Right: 2+, Bicep Left: 2+, Bicep Right: 2+, Brachioradialis Left: 2+, Brachioradialis Right: 2+, Patellar Left: 2 + Coma Scale Eye Opening: SPONTANEOUS Coma Scale Motor Response: OBEYS COMMANDS - Psychiatric Exam Psychiatric exam: Normal Affect, Normal Mood - Skin Skin Exam: Dry, Intact, Normal Color, Warm Results - Vital Signs Recent Vital Signs: Last Vital Signs Temp 98.2 F 04/17/18 02:00 Pulse 72 03/10/18 02:00 Resp 18 03/10/18 04:08 BP 120/67 03/10/18 02:00 Pulse Ox 100 03/10/18 02:00 - Labs Result Diagrams: 03/09/18 23:05 03/10/18 06:20 Labs: Laboratory Results - last 24 hr 03/10/18 03/10/18 03/10/18 05:45 05:45 06:20 Sodium 140 Potassium 3.8 Chloride 103 Carbon Dioxide 27 Anion Gap 15 BUN 10 Creatinine 0.7 L Est GFR ( Amer) > 60 Est GFR (Non-Af Amer) > 60 Random Glucose 88 Calcium 8.7 Total Bilirubin 0.3 AST 25 ALT 33 Alkaline Phosphatase 52 Total Protein 7.5 Albumin 4.2 Globulin 3.3 Albumin/Globulin Ratio 1.3 Urine Color Yellow Urine Appearance Clear Urine pH 6.0 Ur Specific Dudley 1.010 Urine Protein Negative Urine Glucose (UA) Negative Urine Ketones Negative Urine Blood Negative Urine Nitrate Negative Urine Bilirubin Negative Urine Urobilinogen 0.2 Ur Leukocyte Esterase Negative Urine Opiates Screen Negative Urine Methadone Screen Negative Ur Barbiturates Screen Negative Ur Phencyclidine Scrn Negative Ur Amphetamines Screen Negative U Benzodiazepines Scrn Negative U Oth Cocaine Metabols Negative U Cannabinoids Screen Negative Assessment & Plan (1) Epilepsy Status: Acute - Assessment and Plan (Free Text) Assessment: 22 M with a PMHx of CVA x 3, ?cerebral palsy and seizure disorder presented to [facility] ED with complaints of multiple seizures within a day. Pt is taking Keppra 1000 mg PO BID and carbamazepine 400 mg PO BID. Cerbamazepine serum levels are high and subsequently will hold dose, without d/c'ing as pt may be at risk for withdrawal seizures with abrupt d/c. CTH demonstrated large area of low density in the left cerebral hemisphere with associated ex vacuo dilatation of the left lateral ventricle likely represents encephalomalacia from prior infarct. No hemorrhage. We will get an EEG and reassess for further medication recommendations.
[2018-03-10] MEDS: Sodium Chloride 0.9% 1,000 ML IV SCH (20:17)
[2018-03-10] MEDS: levETIRAcetam 1,500 MG in Sodium Chloride 0.9% 100 ML IV SCH (22:10)
[2018-03-11] MEDS: Sodium Chloride 0.9% 1,000 ML IV SCH (05:52)
[2018-03-11 07:10] LABS: BASO # 0.01 K/mm3 (0.0-2.0); BASO % 0.2 % (0.0-3.0); EOS # 0.4 (0.0-0.7); EOS % 5.5 % (1.5-5.0); GRAN # 3.58 (1.4-6.5); GRAN % 55.1 % (50.0-68.0); HEMOGLOBIN 14.4 g/dL (14.0-18.0); LYMPH # 2.2 (1.2-3.4); LYMPH % 33.4 % (22.0-35.0); MEAN CELL VOLUME 88.4 fl (80.0-105.0); MEAN CORPUSCULAR HEMOGLOBIN 30.3 pg (25.0-35.0); MEAN CORPUSCULAR HGB CONC 34.3 g/dl (31.0-37.0); MEAN PLATELET VOLUME 10.1 fl (7.0-11.0); MONO # 0.4 (0.1-0.6); MONO % 5.8 % (1.0-6.0); RBC 4.75 10^6/uL (3.5-6.1); RED CELL DISTRIBUTION WIDTH 12.3 % (11.5-14.5); WHITE BLOOD COUNT 6.5 10^3/ul (4.5-11.0)
[2018-03-11 07:39] LABS: ALB/GLOB RATIO 1.3 (1.1-1.8); ALBUMIN 4.1 g/dL (3.0-4.8); ALT/SGPT 32 U/L (7-56); AST/SGOT 24 U/L (17-59); BLOOD UREA NITROGEN 13 mg/dL (7-21); GFR AFRICAN-AMERICAN > 60; GFR NON-AFRICAN AMERICAN > 60
--- NOTE | 2018-03-11 08:22 | CP.PCM.PN ---
<Nelson Funez - Last Filed: 03/11/18 12:16> Subjective - Date & Time of Evaluation Date of Evaluation: 03/11/18 Time of Evaluation: 11:00 - Subjective Subjective: Subjective: Patient seen and examined at bedside. Resting comfortably in bed. No acute overnight events. Patient denies seizure like activity. Offers no new complaints at this time. Denies fever, chills, chest pain, shortness of breath, abdominal pain, nausea, vomiting, diarrhea, constipation, and urinary symptoms. 12-point review of systems negative except as indicated in the HPI Physical Examination: - Constitutional Appears: Non-toxic, No Acute Distress - Head Exam Head Exam: ATRAUMATIC, NORMOCEPHALIC - Eye Exam Eye Exam: EOMI, PERRL. absent: Conjunctival injection, Nystagmus, Periorbital swelling, Periorbital tenderness, Scleral icterus - ENT Exam ENT Exam: Mucous Membranes Moist, Normal Exam. absent: Mucous Membranes Dry - Neck Exam Neck exam: Positive for: Full Rom - Respiratory Exam Respiratory Exam: Clear to Auscultation Bilateral, NORMAL BREATHING PATTERN. absent: Accessory Muscle Use, Chest Wall Tenderness, Rales, Rhonchi, Wheezes, Stridor - Cardiovascular Exam Cardiovascular Exam: RRR, +S1, +S2. absent: Systolic Murmur - GI/Abdominal Exam GI & Abdominal Exam: Normal Bowel Sounds, Soft. absent: Distended, Firm, Guarding, Mass, Rebound, Rigid, Tenderness - Extremities Exam Extremities exam: Positive for: normal inspection. Negative for: calf tenderness, pedal edema - Back Exam Back exam: NORMAL INSPECTION. absent: CVA tenderness (L), CVA tenderness (R) - Neurological Exam Neurological exam:AAO x 3, CN II- XII intact, muscle strength 5/5 LUE, RLE, LLE ; 4/5 RUE Patient is awake, alert, responds to verbal stimuli, answers questions appropriately, follows commands, and moves extremities past midline - Skin Skin Exam: Dry, Normal Color, Warm Assessment and Plan: Patient is a 22 year old male with PMHx of seizure disorder who was admitted for seizure like activity. Seizure; Hx of Cerebral Palsy - CT head: Large area of low density in the left cerebral hemisphere with associated ex vacuo dilatation of the left lateral ventricle likely represents encephalomalacia from prior infarct. No hemorrhage. - Neurocheck q4h - HOB 30 - PRN ativan for seizure activity - Neurology consulted- appreciate recommendations- MRI with/without contrast ordered and pending, continue keppra and valproic acid Deconditioned State - PT consulted- appreciate recommendations Prophylaxis - DVT ppx- SCDs - GI ppx- pantoprazole Patient seen, case reviewed with, and plan approved by attending physician, Dr. Walsh. Objective - Vital Signs/Intake and Output Vital Signs (last 24 hours): Temp Pulse Resp BP Pulse Ox 98.3 F 59 L 16 126/55 L 100 03/10/18 23:03 03/10/18 23:03 03/10/18 23:03 03/10/18 23:03 03/10/18 23:03 Intake and Output: 03/11/18 03/11/18 06:59 18:59 Intake Total 1590 Output Total 1500 Balance 90 - Medications Medications: Current Medications Levetiracetam 1,500 mg/ Sodium (Chloride) 115 mls @ 460 mls/hr IV Q12 [facility] Last Admin: 03/10/18 22:10 Dose: 460 mls/hr Sodium Chloride (Sodium Chloride 0.9%) 1,000 mls @ 75 mls/hr IV .[id number] [facility] Last Admin: 03/11/18 05:52 Dose: 75 mls/hr Lorazepam (Ativan) 3 mg IVP Q6H PRN; Protocol PRN Reason: Seizure activity Pantoprazole Sodium (Protonix Inj) 40 mg IVP DAILY [facility] Last Admin: 03/10/18 10:42 Dose: 40 mg Valproate Sodium (Depakene Cap) 500 mg PO BID [facility] Last Admin: 03/10/18 20:17 Dose: Not Given - Labs Labs: 03/11/18 06:45 03/11/18 06:45 PT 15.0 SECONDS (9.4-12.5) H 03/09/18 23:05 INR 1.31 (0.93-1.08) H 03/09/18 23:05 <Wai Walsh - Last Filed: 03/11/18 16:23> Objective - Vital Signs/Intake and Output Vital Signs (last 24 hours): Temp Pulse Resp BP Pulse Ox 98.7 F 64 18 113/64 100 03/11/18 14:00 03/11/18 14:00 03/11/18 14:00 03/11/18 14:00 03/11/18 14:00 Intake and Output: 03/11/18 03/11/18 06:59 18:59 Intake Total 1590 840 Output Total 1500 1200 Balance 90 -360 - Medications Medications: Current Medications Levetiracetam 1,500 mg/ Sodium (Chloride) 115 mls @ 460 mls/hr IV Q12 [facility] Last Admin: 03/11/18 09:37 Dose: 460 mls/hr Sodium Chloride (Sodium Chloride 0.9%) 1,000 mls @ 75 mls/hr IV .[id number] [facility] Last Admin: 03/11/18 05:52 Dose: 75 mls/hr Lorazepam (Ativan) 3 mg IVP Q6H PRN; Protocol PRN Reason: Seizure activity Pantoprazole Sodium (Protonix Inj) 40 mg IVP DAILY [facility] Last Admin: 03/11/18 09:38 Dose: 40 mg Valproate Sodium (Depakene Cap) 500 mg PO BID [facility] Last Admin: 03/11/18 09:38 Dose: 500 mg - Labs Labs: 03/11/18 06:45 03/11/18 06:45 PT 15.0 SECONDS (9.4-12.5) H 03/09/18 23:05 INR 1.31 (0.93-1.08) H 03/09/18 23:05 Attending/Attestation - Attestation I have personally seen and examined this patient.: Yes I have fully participated in the care of the patient.: Yes I have reviewed all pertinent clinical information, including history, physical exam and plan: Yes Notes (Text): 03/11/18 16:20 Attending note; Patient seen and examined with resident. Patient is a 22-year-old male from [facility] [place] with a past medical history of cerebral palsy, right hand atrophy with weakness, cognitive impairment is admitted with recurrent seizures. Patient was on Keppra and carbamazepine. Keppra level was normal. Carbamazepine level was elevated. CT head showed significant encephalomalacia on the left side .no acute infarct noted . Neurology evaluation requested . dosage of Keppra increased. Carbamazepine explained discontinued. Started on valproic acid. Swallow evaluation appreciated. Started on bite size diet with aspiration precautions. Case discussed with patient's mother in detail. PT evaluation requested. Monitor closely. Patient will be referred to [facility] clinic upon discharge.
[2018-03-11] MEDS: levETIRAcetam 1,500 MG in Sodium Chloride 0.9% 100 ML IV SCH ×2 (09:37→21:50)
[2018-03-11] MEDS ORDERED: Gadodiamide 287 MG/ML VIAL (15ML) IV ONE (11:04)
--- NOTE | 2018-03-11 13:07 | MRI ---
PROCEDURE: MRI of the brain dated 03/11/2018 HISTORY: Seizure COMPARISON: Comparison made with CT scan brain 03/09/2018 TECHNIQUE: Multiplanar, multisequence MR images of the brain were obtained with and without intravenous contrast enhancement. 15 cc Omniscan injected for this examination FINDINGS: HEMORRHAGE: No acute parenchymal, subarachnoid or extra-axial hemorrhage. No evidence hemosiderin deposition seen on gradient echo weighted sequence. DWI: No evidence of an acute or early subacute infarction seen on diffusion imaging. BRAIN PARENCHYMA: Re- demonstrated is a relatively large nonenhancing area of partially cystic encephalomalacia involving the left frontal and parietal operculum, temporal lobe and left lateral basal ganglia regions. Rule out sequela of very remote trauma or infarct (based on diminution of the entire left cerebral hemisphere as well as overlying compensatory calvarial thickening). Clinical correlation recommended. . There is mild gliosis in the adjacent white matter peripherally surrounding the encephalomalacia changes. Associated ex vacuo dilatation of the left lateral ventricle again noted. Additionally, there is wallerian degeneration of the left cerebral peduncle most conspicuous along the inferior margin of the left cerebral peduncle. ENHANCEMENT: There is a wispy curvilinear area of enhancement seen in the left aspect of the upper richardson that probably represents an incidental developmental venous anomaly (DVA) ie tiny venous angioma. No additional areas of abnormal enhancement. No enhancing parenchymal nor extra-axial masses or collections. No evidence of unusual meningeal enhancement. . VENTRICLES: No obstructive hydrocephalus common not withstanding the aforementioned ex vacuo dilatation of the left lateral ventricle. . CRANIUM: There is thickening of the left temporal and parietal calvarium felt to be compensatory due to the aforementioned encephalomalacia the ORBITS: Orbits and contents appear grossly unremarkable. PARANASAL SINUSES/MASTOIDS: Mild mucosal thickening left chamber sphenoid sinus. VASCULAR SYSTEM: Visualized major vascular flow voids at skull base are patent. OTHER FINDINGS: None . IMPRESSION: Re- demonstrated are on a relatively large area of partially cystic encephalomalacia involving the left frontal and parietal operculum regions, left temporal lobe and left lateral basal ganglia which associated with surrounding gliosis in the adjacent white matter and ex vacuo dilatation of the left lateral ventricle. Findings are of uncertain etiology though could be due to remote ischemia or trauma (based on diminution of the entire left cerebral hemisphere as well as overlying compensatory calvarial thickening). Clinical correlation with history recommended. There is associated mild wallerian degeneration of the left cerebral peduncle as above. No evidence of acute infarct or acute hemorrhage. There is a wispy curvilinear area of enhancement seen in the left aspect of the upper richardson that probably represents an incidental developmental venous anomaly (DVA) ie tiny venous angioma.
--- NOTE | 2018-03-11 13:59 | CP.PCM.PN ---
Subjective - Date & Time of Evaluation Date of Evaluation: 03/11/18 Time of Evaluation: 10:00 - Subjective Subjective: Neurology Progress Note Dr Castillo Pt was seen and examined at bedside. No acute complaints at this time. No acute or adverse events overnight as per nursing staff. Pt denied any further episodes of seizures. Pt tolerated his medications yesterday, is tolerating po intake and is moving bowels and bladder regularly. Pt denied fever, chills, sob , chest pains, abdominal pains, nausea, vomiting, diarrhea, constipation or dysuria. Exam: Awake Alert but easily arousable and able to follow commands JOSSY, EOMI CN 2-12 intact Motor tone normal strength RUE 4/5, LUE, LLE & RLE 5/5 sensory grossly intact gait not tested DTR +2 upper and lower limbs b/l, toes downgoing bilaterally no clonus Objective - Vital Signs/Intake and Output Vital Signs (last 24 hours): Temp Pulse Resp BP Pulse Ox 98.1 F 70 16 115/54 L 100 03/11/18 06:00 03/11/18 06:00 03/11/18 06:00 03/11/18 06:00 03/11/18 06:00 Intake and Output: 03/11/18 03/11/18 06:59 18:59 Intake Total 1590 Output Total 1500 Balance 90 - Medications Medications: Current Medications Levetiracetam 1,500 mg/ Sodium (Chloride) 115 mls @ 460 mls/hr IV Q12 [facility] Last Admin: 03/11/18 09:37 Dose: 460 mls/hr Sodium Chloride (Sodium Chloride 0.9%) 1,000 mls @ 75 mls/hr IV .[id number] [facility] Last Admin: 03/11/18 05:52 Dose: 75 mls/hr Lorazepam (Ativan) 3 mg IVP Q6H PRN; Protocol PRN Reason: Seizure activity Pantoprazole Sodium (Protonix Inj) 40 mg IVP DAILY [facility] Last Admin: 03/11/18 09:38 Dose: 40 mg Valproate Sodium (Depakene Cap) 500 mg PO BID [facility] Last Admin: 03/11/18 09:38 Dose: 500 mg - Labs Labs: 03/11/18 06:45 03/11/18 06:45 PT 15.0 SECONDS (9.4-12.5) H 03/09/18 23:05 INR 1.31 (0.93-1.08) H 03/09/18 23:05 Assessment and Plan (1) Epilepsy Status: Acute - Assessment and Plan (Free Text) Assessment: 22 M with a PMHx of CVA x 3, cerebral palsy and seizure disorder presented to [facility] with complaints of multiple seizures within a day. Pt meds have been adjusted to Keppra 1500 mg PO BID and Depakote 500mg BID. We can get a valproic acid level prior to dc. Carbamazepine to be tapered off. FU with MRI. Pt will need to be followed as outpatient
[2018-03-12 06:55] LABS: BASO # 0.01 K/mm3 (0.0-2.0); BASO % 0.1 % (0.0-3.0); EOS # 0.3 (0.0-0.7); EOS % 3.5 % (1.5-5.0); GRAN # 5.4 (1.4-6.5); GRAN % 64.3 % (50.0-68.0); LYMPH # 2.1 (1.2-3.4); LYMPH % 24.4 % (22.0-35.0); MEAN CELL VOLUME 87.8 fl (80.0-105.0); MEAN CORPUSCULAR HEMOGLOBIN 30.4 pg (25.0-35.0); MEAN CORPUSCULAR HGB CONC 34.6 g/dl (31.0-37.0); MEAN PLATELET VOLUME 10.1 fl (7.0-11.0); MONO # 0.7 (0.1-0.6); MONO % 7.7 % (1.0-6.0); RBC 4.93 10^6/uL (3.5-6.1); RED CELL DISTRIBUTION WIDTH 12.3 % (11.5-14.5); WHITE BLOOD COUNT 8.4 10^3/ul (4.5-11.0)
[2018-03-12 07:33] LABS: ALB/GLOB RATIO 1.3 (1.1-1.8); ALBUMIN 4.6 g/dL (3.0-4.8); ALT/SGPT 32 U/L (7-56); AST/SGOT 31 U/L (17-59); BLOOD UREA NITROGEN 12 mg/dL (7-21); CALCIUM 9.5 mg/dL (8.4-10.5); GFR AFRICAN-AMERICAN > 60; GFR NON-AFRICAN AMERICAN > 60
[2018-03-12] MEDS: levETIRAcetam 1,500 MG in Sodium Chloride 0.9% 100 ML IV SCH (09:52)
--- NOTE | 2018-03-12 12:24 | CP.PCM.PN ---
Subjective - Date & Time of Evaluation Date of Evaluation: 03/12/18 Time of Evaluation: 12:22 - Subjective Subjective: Mr. White was seen and examined at the bedside. He is alert, oriented and mainly speaks Sinhala, utilized staff to interpret. He denies any headache, dizziness, lightheadedness. He is able to feed himself and able to maintain good posture while sitting at the side of the bed. According to the patient, he does not remember seeing a neurologist prior to admission.MRI of the brain showed no evidence of acute infarct or hemorrhage. There is a wispy curvilinear area of enhancement seen in the left aspect of the upper richardson that probably represent incidental developmental venous anomaly (DVA), tiny venous angioma. There is associated mild wallerian degeneration of the left cerebral peduncle. There is a re-demonstration of relatively large area of partially cystic encephalomalacia involving the left frontal and parietal operculum regions, left temporal lobe and left lateral basal ganglia which is associated with surrounding gliosis in the adjacent white matter and ex vacuo dilation of the left lateral ventricle. Findings are of uncertain etiology though could be due to remote ischemia or trauma. There was no untoward events overnight. Objective - Vital Signs/Intake and Output Vital Signs (last 24 hours): Temp Pulse Resp BP Pulse Ox 98 F 64 16 114/64 100 03/12/18 06:00 03/12/18 06:00 03/12/18 06:00 03/12/18 06:00 03/12/18 06:00 Intake and Output: 03/12/18 03/12/18 06:59 18:59 Intake Total 360 Output Total 600 Balance -240 - Medications Medications: Current Medications Levetiracetam 1,500 mg/ Sodium (Chloride) 115 mls @ 460 mls/hr IV Q12 [facility] Last Admin: 03/12/18 09:52 Dose: 460 mls/hr Lorazepam (Ativan) 3 mg IVP Q6H PRN; Protocol PRN Reason: Seizure activity Pantoprazole Sodium (Protonix Inj) 40 mg IVP DAILY [facility] Last Admin: 03/12/18 09:52 Dose: 40 mg Valproate Sodium (Depakene Cap) 500 mg PO BID [facility] Last Admin: 03/12/18 09:51 Dose: 500 mg - Labs Labs: 03/12/18 06:20 03/12/18 06:20 PT 15.0 SECONDS (9.4-12.5) H 03/09/18 23:05 INR 1.31 (0.93-1.08) H 03/09/18 23:05 - Constitutional Appears: No Acute Distress - Head Exam Head Exam: NORMAL INSPECTION - Neurological Exam Neurological Exam: Alert, Awake, Oriented x3 Neuro motor strength exam: Left Upper Extremity: 4, Right Upper Extremity: 4, Left Lower Extremity: 4, Right Lower Extremity: 4 Additional comments: He is alert, oriented, able to follow simple commands, independently ambulate with steady gait. Assessment and Plan (1) Seizure disorder Assessment & Plan: Case discussed with Dr. Castillo, continue all current medical and physical therapy. Recommend valproic and liver enzymes prior to discharge. Recommend to follow up with an outpatient neurologist. If patient would like to follow up with Dr. Prajapati/ Jonathan at [address] [place] [address]. [address] [facility], [address]. Tel. # . Status: Acute
--- NOTE | 2018-03-12 13:30 | CP.PCM.PN ---
<Nelson Funez - Last Filed: 03/12/18 13:21> Subjective - Date & Time of Evaluation Date of Evaluation: 03/12/18 Time of Evaluation: 10:15 - Subjective Subjective: Subjective: Patient seen and examined at bedside. Resting comfortably in bed. No acute overnight events. Patient denies seizure like activity. Ambulating without overt difficulty. Offers no new complaints at this time. Denies fever, chills, chest pain, shortness of breath, abdominal pain, nausea, vomiting, diarrhea, constipation, and urinary symptoms. 12-point review of systems negative except as indicated in the HPI Physical Examination: - Constitutional Appears: Non-toxic, No Acute Distress - Head Exam Head Exam: ATRAUMATIC, NORMOCEPHALIC - Eye Exam Eye Exam: EOMI, PERRL. absent: Conjunctival injection, Nystagmus, Periorbital swelling, Periorbital tenderness, Scleral icterus - ENT Exam ENT Exam: Mucous Membranes Moist, Normal Exam. absent: Mucous Membranes Dry - Neck Exam Neck exam: Positive for: Full Rom - Respiratory Exam Respiratory Exam: Clear to Auscultation Bilateral, NORMAL BREATHING PATTERN. absent: Accessory Muscle Use, Chest Wall Tenderness, Rales, Rhonchi, Wheezes, Stridor - Cardiovascular Exam Cardiovascular Exam: RRR, +S1, +S2. absent: Systolic Murmur - GI/Abdominal Exam GI & Abdominal Exam: Normal Bowel Sounds, Soft. absent: Distended, Firm, Guarding, Mass, Rebound, Rigid, Tenderness - Extremities Exam Extremities exam: right upper extremity thin compared to left, right wrist flexion ulnar deviation contraction Negative for: calf tenderness, pedal edema - Back Exam Back exam: NORMAL INSPECTION. absent: CVA tenderness (L), CVA tenderness (R) - Neurological Exam Neurological exam:AAO x 3, CN II- XII intact, muscle strength 5/5 LUE, RLE, LLE ; 4/5 RUE Patient is awake, alert, responds to verbal stimuli, answers questions appropriately, follows commands, and moves extremities past midline - Skin Skin Exam: Dry, Normal Color, Warm Assessment and Plan: Patient is a 22 year old male with PMHx of seizure disorder who was admitted for seizure like activity. Seizure; Hx of Cerebral Palsy - CT head: Large area of low density in the left cerebral hemisphere with associated ex vacuo dilatation of the left lateral ventricle likely represents encephalomalacia from prior infarct. No hemorrhage - MRI with/without contrast ordered and pending- demonstrated are on a relatively large area of partially cystic encephalomalacia involving the left frontal and parietal operculum regions, left temporal lobe and left lateral basal ganglia which associated with surrounding gliosis in the adjacent white matter and ex vacuo dilatation of the left lateral ventricle. Findings are of uncertain etiology though could be due to remote ischemia or trauma (based on diminution of the entire left cerebral hemisphere as well as overlying compensatory calvarial thickening). - Neurocheck q4h - HOB 30 - PRN ativan for seizure activity - Neurology consulted- appreciate recommendations - continue keppra and valproic acid Deconditioned State - PT consulted- appreciate recommendations- recommends acute rehabilitation, will reevaluate today Prophylaxis - DVT ppx- SCDs - GI ppx- pantoprazole Patient seen, case reviewed with, and plan approved by attending physician, Dr. Walsh. Objective - Vital Signs/Intake and Output Vital Signs (last 24 hours): Temp Pulse Resp BP Pulse Ox 98 F 64 16 114/64 100 03/12/18 06:00 03/12/18 06:00 03/12/18 06:00 03/12/18 06:00 03/12/18 06:00 Intake and Output: 03/12/18 03/12/18 06:59 18:59 Intake Total 360 Output Total 600 Balance -240 - Medications Medications: Current Medications Levetiracetam 1,500 mg/ Sodium (Chloride) 115 mls @ 460 mls/hr IV Q12 [facility] Last Admin: 03/12/18 09:52 Dose: 460 mls/hr Lorazepam (Ativan) 3 mg IVP Q6H PRN; Protocol PRN Reason: Seizure activity Pantoprazole Sodium (Protonix Inj) 40 mg IVP DAILY [facility] Last Admin: 03/12/18 09:52 Dose: 40 mg Valproate Sodium (Depakene Cap) 500 mg PO BID [facility] Last Admin: 03/12/18 09:51 Dose: 500 mg - Labs Labs: 03/12/18 06:20 03/12/18 06:20 PT 15.0 SECONDS (9.4-12.5) H 03/09/18 23:05 INR 1.31 (0.93-1.08) H 03/09/18 23:05 <Wai Walsh - Last Filed: 03/12/18 15:27> Objective - Vital Signs/Intake and Output Vital Signs (last 24 hours): Temp Pulse Resp BP Pulse Ox 98.6 F 80 18 115/63 100 03/12/18 14:00 03/12/18 14:00 03/12/18 14:00 03/12/18 14:00 03/12/18 14:00 Intake and Output: 03/12/18 03/12/18 06:59 18:59 Intake Total 360 600 Output Total 600 800 Balance -240 -200 - Medications Medications: Current Medications Levetiracetam 1,500 mg/ Sodium (Chloride) 115 mls @ 460 mls/hr IV Q12 [facility] Last Admin: 03/12/18 09:52 Dose: 460 mls/hr Lorazepam (Ativan) 3 mg IVP Q6H PRN; Protocol PRN Reason: Seizure activity Pantoprazole Sodium (Protonix Inj) 40 mg IVP DAILY [facility] Last Admin: 03/12/18 09:52 Dose: 40 mg Valproate Sodium (Depakene Cap) 500 mg PO BID [facility] Last Admin: 03/12/18 09:51 Dose: 500 mg - Labs Labs: 03/12/18 06:20 03/12/18 06:20 PT 15.0 SECONDS (9.4-12.5) H 03/09/18 23:05 INR 1.31 (0.93-1.08) H 03/09/18 23:05 Attending/Attestation - Attestation I have personally seen and examined this patient.: Yes I have fully participated in the care of the patient.: Yes I have reviewed all pertinent clinical information, including history, physical exam and plan: Yes Notes (Text): 03/12/18 15:26 Attending note; Patient seen and examined with resident. Patient is a 22-year-old male from [place] with a past medical history of cerebral palsy, ? injury, right hand atrophy with weakness, cognitive impairment is admitted with recurrent seizures. Patient was on Keppra and carbamazepine. Keppra level was normal. Carbamazepine level was elevated. CT head showed significant encephalomalacia on the left side .no acute infarct noted . Neurology evaluation appreciated. dosage of Keppra increased. Carbamazepine explained discontinued. Started on valproic acid. Swallow evaluation appreciated. Started on bite size diet with aspiration precautions. Case discussed with patient's mother in detail. PT evaluation appreciated. Case discussed with immigration case manager for discharge planning. Patient will be referred to [facility] clinic upon discharge.
--- NOTE | 2018-03-12 14:07 | CP.PCM.DIS ---
<Nelson Funez - Last Filed: 03/12/18 14:34> Provider - Provider Date of Admission: 03/10/18 02:13 Attending physician: Wai Walsh MD Primary care physician: NO PRIMARY CARE PROVIDER Time Spent in preparation of Discharge (in minutes): 45 Diagnosis - Discharge Diagnosis (1) Encephalomalacia Status: Chronic Priority: Medium (2) Epilepsy Status: Chronic Priority: Medium (3) Seizure disorder Status: Acute Priority: Medium Hospital Course - Lab Results Lab Results: Most Recent Lab Values WBC 8.4 10^3/ul (4.5-11.0) D 03/12/18 06:20 RBC 4.93 10^6/uL (3.5-6.1) 03/12/18 06:20 Hgb 15.0 g/dL (14.0-18.0) 03/12/18 06:20 Hct 43.3 % (42.0-52.0) 03/12/18 06:20 MCV 87.8 fl (80.0-105.0) 03/12/18 06:20 MCH 30.4 pg (25.0-35.0) 03/12/18 06:20 MCHC 34.6 g/dl (31.0-37.0) 03/12/18 06:20 RDW 12.3 % (11.5-14.5) 03/12/18 06:20 Plt Count 237 10^3/uL (120.0-450.0) 03/12/18 06:20 MPV 10.1 fl (7.0-11.0) 03/12/18 06:20 Gran % 64.3 % (50.0-68.0) 03/12/18 06:20 Lymph % (Auto) 24.4 % (22.0-35.0) 03/12/18 06:20 [place] % (Auto) 7.7 % (1.0-6.0) H 03/12/18 06:20 Eos % (Auto) 3.5 % (1.5-5.0) 03/12/18 06:20 Baso % (Auto) 0.1 % (0.0-3.0) 03/12/18 06:20 Gran # 5.40 (1.4-6.5) 03/12/18 06:20 Lymph # (Auto) 2.1 (1.2-3.4) 03/12/18 06:20 [place] # (Auto) 0.7 (0.1-0.6) H 03/12/18 06:20 Eos # (Auto) 0.3 (0.0-0.7) 03/12/18 06:20 Baso # (Auto) 0.01 K/mm3 (0.0-2.0) 03/12/18 06:20 PT 15.0 SECONDS (9.4-12.5) H 03/09/18 23:05 INR 1.31 (0.93-1.08) H 03/09/18 23:05 Sodium 140 mmol/L (132-148) 03/12/18 06:20 Potassium 4.4 mmol/L (3.6-5.0) 03/12/18 06:20 Chloride 100 mmol/L (98-107) 03/12/18 06:20 Carbon Dioxide 30 mmol/L (21-33) 03/12/18 06:20 Anion Gap 15 (10-20) 03/12/18 06:20 BUN 12 mg/dL (7-21) 03/12/18 06:20 Creatinine 0.9 mg/dl (0.8-1.5) 03/12/18 06:20 Est GFR ( Amer) > 60 03/12/18 06:20 Est GFR (Non-Af Amer) > 60 03/12/18 06:20 Random Glucose 95 mg/dL (70-110) 03/12/18 06:20 Calcium 9.5 mg/dL (8.4-10.5) 03/12/18 06:20 Phosphorus 4.2 mg/dL (2.5-4.5) 03/12/18 06:20 Magnesium 2.0 mg/dL (1.7-2.2) 03/12/18 06:20 Total Bilirubin 0.4 mg/dL (0.2-1.3) 03/12/18 06:20 AST 31 U/L (17-59) 03/12/18 06:20 ALT 32 U/L (7-56) 03/12/18 06:20 Alkaline Phosphatase 49 U/L (38-126) 03/12/18 06:20 Total Protein 8.0 g/dL (5.8-8.3) 03/12/18 06:20 Albumin 4.6 g/dL (3.0-4.8) 03/12/18 06:20 Globulin 3.4 gm/dL 03/12/18 06:20 Albumin/Globulin Ratio 1.3 (1.1-1.8) 03/12/18 06:20 Prolactin 12.9 ng/mL (3.7-17.9) 03/10/18 08:00 Urine Color Yellow (YELLOW) 03/10/18 05:45 Urine Appearance Clear (CLEAR) 03/10/18 05:45 Urine pH 6.0 (4.7-8.0) 03/10/18 05:45 Ur Specific [place] 1.010 (1.005-1.035) 03/10/18 05:45 Urine Protein Negative mg/dL (<30 mg/dL) 03/10/18 05:45 Urine Glucose (UA) Negative mg/dL (NEGATIVE) 03/10/18 05:45 Urine Ketones Negative mg/dL (NEGATIVE) 03/10/18 05:45 Urine Blood Negative (NEGATIVE) 03/10/18 05:45 Urine Nitrate Negative (NEGATIVE) 03/10/18 05:45 Urine Bilirubin Negative (NEGATIVE) 03/10/18 05:45 Urine Urobilinogen 0.2 E.U./dL (<1 E.U./dL) 03/10/18 05:45 Ur Leukocyte Esterase Negative Erwin/uL (NEGATIVE) 03/10/18 05:45 Urine Opiates Screen Negative (NEGATIVE) 03/10/18 05:45 Urine Methadone Screen Negative (NEGATIVE) 03/10/18 05:45 Ur Barbiturates Screen Negative (NEGATIVE) 03/10/18 05:45 Valproic Acid < 10 ug/mL (50.0-100.0) L 03/10/18 17:08 Carbamazepine < 3 ug/mL (4.0-10.0) L 03/12/18 08:00 Ur Phencyclidine Scrn Negative (NEGATIVE) 03/10/18 05:45 Ur Amphetamines Screen Negative (NEGATIVE) 03/10/18 05:45 U Benzodiazepines Scrn Negative (NEGATIVE) 03/10/18 05:45 U Oth Cocaine Metabols Negative (NEGATIVE) 03/10/18 05:45 U Cannabinoids Screen Negative (NEGATIVE) 03/10/18 05:45 Alcohol, Quantitative < 10 mg/dL (0-10) 03/09/18 23:05 - Hospital Course Hospital Course: Patient is a 22 year old male with PMHx of seizure disorder, cerebral palsy, questionable trauma, questionable stroke history who was admitted for seizure like activity. With the use of physical examinations, lab work, and imaging the patient was diagnosed with and treated for seizures and encephalomalacia. During their hospital stay the patient was seen by neurology ( Dr. Castillo) whose recommendations were both appreciated and utilized in the care for this patient. Dr. Castillo stopped the patients carbamazapine, increased home keppra dose, and started him on valproic acid. During their hospital stay the patient underwent a head CT and MRI of head which were reviewed, appreciated, and utilized in the management of the patients clinical course. The CT of the head showed a large area of low density in the left cerebral hemisphere with associated ex vacuo dilatation of the left lateral ventricle likely represents encephalomalacia from prior infarct and no hemorrhage. MRI with/without contrast showed a relatively large area of partially cystic encephalomalacia involving the left frontal and parietal operculum regions, left temporal lobe and left lateral basal ganglia which associated with surrounding gliosis in the adjacent white matter and ex vacuo dilatation of the left lateral ventricle. Patient was treated with antiepileptic medications amongst other empiric/ therapeutic medications. At this time the patient is medically stable for discharge. Patient understands and appreciates discharge plan. Patient instructed to follow up with primary care physicians and referrals within three to five days from discharge. Patient has appointment with the [facility] March 19 9at am with Rosalva Bashir. [facility], [place] Furthermore, the patient is instructed to take medications as prescribed and to return to emergency room for evaluation of intractable headache, fever, chills, dizziness , chest pain, shortness of breath, abdominal pain, nausea, vomiting, diarrhea, constipation, and urinary symptoms. This is a brief summary of the patients hospital course. Please see patient chart for full details. Discharge Exam - Head Exam Head Exam: NORMAL INSPECTION - Additional Findings Additional findings: - Constitutional Appears: Non-toxic, No Acute Distress - Head Exam Head Exam: ATRAUMATIC, NORMOCEPHALIC - Eye Exam Eye Exam: EOMI, PERRL. absent: Conjunctival injection, Nystagmus, Periorbital swelling, Periorbital tenderness, Scleral icterus - ENT Exam ENT Exam: Mucous Membranes Moist, Normal Exam. absent: Mucous Membranes Dry - Neck Exam Neck exam: Positive for: Full Rom - Respiratory Exam Respiratory Exam: Clear to Auscultation Bilateral, NORMAL BREATHING PATTERN. absent: Accessory Muscle Use, Chest Wall Tenderness, Rales, Rhonchi, Wheezes, Stridor - Cardiovascular Exam Cardiovascular Exam: RRR, +S1, +S2. absent: Systolic Murmur - GI/Abdominal Exam GI & Abdominal Exam: Normal Bowel Sounds, Soft. absent: Distended, Firm, Guarding, Mass, Rebound, Rigid, Tenderness - Extremities Exam Extremities exam: right upper extremity thin compared to left, right wrist flexion ulnar deviation contraction Negative for: calf tenderness, pedal edema - Back Exam Back exam: NORMAL INSPECTION. absent: CVA tenderness (L), CVA tenderness (R) - Neurological Exam Neurological exam:AAO x 3, CN II- XII intact, muscle strength 5/5 LUE, RLE, LLE ; 4/5 RUE Patient is awake, alert, responds to verbal stimuli, answers questions appropriately, follows commands, and moves extremities past midline - Skin Skin Exam: Dry, Normal Color, Warm Discharge Plan - Discharge Medications Prescriptions: Valproic Acid Cap [Depakene Cap] 500 mg PO BID 14 Days sgl Levetiracetam [Keppra] 1,500 mg PO Q12H 14 Days tablet - Follow Up Plan Condition: GOOD Disposition: HOME/ ROUTINE Instructions: Seizures, Adult (DC) Additional Instructions: Patient Instructions: Take medications as prescribed. Keppra 1500mg twice a day and Valporate sodium 500mg twice a day Follow up with PMD and referrals within three to five days from discharge. Appt set for [facility] March 19 9at am with Rosalva Bashir Return to the emergency room for evaluation of intractable headache, fever, chills, dizziness, chest pain, shortness of breath, abdominal pain, nausea, vomiting, diarrhea, constipation, and urinary symptoms. Referrals: PCP,NO [Primary Care Provider] - <Wai Walsh - Last Filed: 03/12/18 15:29> Provider - Provider Date of Admission: 03/10/18 02:13 Attending physician: Wai Walsh MD Primary care physician: NO PRIMARY CARE PROVIDER Hospital Course - Lab Results Lab Results: Most Recent Lab Values WBC 8.4 10^3/ul (4.5-11.0) D 03/12/18 06:20 RBC 4.93 10^6/uL (3.5-6.1) 03/12/18 06:20 Hgb 15.0 g/dL (14.0-18.0) 03/12/18 06:20 Hct 43.3 % (42.0-52.0) 03/12/18 06:20 MCV 87.8 fl (80.0-105.0) 03/12/18 06:20 MCH 30.4 pg (25.0-35.0) 03/12/18 06:20 MCHC 34.6 g/dl (31.0-37.0) 03/12/18 06:20 RDW 12.3 % (11.5-14.5) 03/12/18 06:20 Plt Count 237 10^3/uL (120.0-450.0) 03/12/18 06:20 MPV 10.1 fl (7.0-11.0) 03/12/18 06:20 Gran % 64.3 % (50.0-68.0) 03/12/18 06:20 Lymph % (Auto) 24.4 % (22.0-35.0) 03/12/18 06:20 [place]undy % (Auto) 7.7 % (1.0-6.0) H 03/12/18 06:20 Eos % (Auto) 3.5 % (1.5-5.0) 03/12/18 06:20 Baso % (Auto) 0.1 % (0.0-3.0) 03/12/18 06:20 Gran # 5.40 (1.4-6.5) 03/12/18 06:20 Lymph # (Auto) 2.1 (1.2-3.4) 03/12/18 06:20 [place] # (Auto) 0.7 (0.1-0.6) H 03/12/18 06:20 Eos # (Auto) 0.3 (0.0-0.7) 03/12/18 06:20 Baso # (Auto) 0.01 K/mm3 (0.0-2.0) 03/12/18 06:20 PT 15.0 SECONDS (9.4-12.5) H 03/09/18 23:05 INR 1.31 (0.93-1.08) H 03/09/18 23:05 Sodium 140 mmol/L (132-148) 03/12/18 06:20 Potassium 4.4 mmol/L (3.6-5.0) 03/12/18 06:20 Chloride 100 mmol/L (98-107) 03/12/18 06:20 Carbon Dioxide 30 mmol/L (21-33) 03/12/18 06:20 Anion Gap 15 (10-20) 03/12/18 06:20 BUN 12 mg/dL (7-21) 03/12/18 06:20 Creatinine 0.9 mg/dl (0.8-1.5) 03/12/18 06:20 Est GFR ( Amer) > 60 03/12/18 06:20 Est GFR (Non-Af Amer) > 60 03/12/18 06:20 Random Glucose 95 mg/dL (70-110) 03/12/18 06:20 Calcium 9.5 mg/dL (8.4-10.5) 03/12/18 06:20 Phosphorus 4.2 mg/dL (2.5-4.5) 03/12/18 06:20 Magnesium 2.0 mg/dL (1.7-2.2) 03/12/18 06:20 Total Bilirubin 0.4 mg/dL (0.2-1.3) 03/12/18 06:20 AST 31 U/L (17-59) 03/12/18 06:20 ALT 32 U/L (7-56) 03/12/18 06:20 Alkaline Phosphatase 49 U/L (38-126) 03/12/18 06:20 Total Protein 8.0 g/dL (5.8-8.3) 03/12/18 06:20 Albumin 4.6 g/dL (3.0-4.8) 03/12/18 06:20 Globulin 3.4 gm/dL 03/12/18 06:20 Albumin/Globulin Ratio 1.3 (1.1-1.8) 03/12/18 06:20 Prolactin 12.9 ng/mL (3.7-17.9) 03/10/18 08:00 Urine Color Yellow (YELLOW) 03/10/18 05:45 Urine Appearance Clear (CLEAR) 03/10/18 05:45 Urine pH 6.0 (4.7-8.0) 03/10/18 05:45 Ur Specific [place] 1.010 (1.005-1.035) 03/10/18 05:45 Urine Protein Negative mg/dL (<30 mg/dL) 03/10/18 05:45 Urine Glucose (UA) Negative mg/dL (NEGATIVE) 03/10/18 05:45 Urine Ketones Negative mg/dL (NEGATIVE) 03/10/18 05:45 Urine Blood Negative (NEGATIVE) 03/10/18 05:45 Urine Nitrate Negative (NEGATIVE) 03/10/18 05:45 Urine Bilirubin Negative (NEGATIVE) 03/10/18 05:45 Urine Urobilinogen 0.2 E.U./dL (<1 E.U./dL) 03/10/18 05:45 Ur Leukocyte Esterase Negative Erwin/uL (NEGATIVE) 03/10/18 05:45 Urine Opiates Screen Negative (NEGATIVE) 03/10/18 05:45 Urine Methadone Screen Negative (NEGATIVE) 03/10/18 05:45 Ur Barbiturates Screen Negative (NEGATIVE) 03/10/18 05:45 Valproic Acid < 10 ug/mL (50.0-100.0) L 03/10/18 17:08 Carbamazepine < 3 ug/mL (4.0-10.0) L 03/12/18 08:00 Ur Phencyclidine Scrn Negative (NEGATIVE) 03/10/18 05:45 Ur Amphetamines Screen Negative (NEGATIVE) 03/10/18 05:45 U Benzodiazepines Scrn Negative (NEGATIVE) 03/10/18 05:45 U Oth Cocaine Metabols Negative (NEGATIVE) 03/10/18 05:45 U Cannabinoids Screen Negative (NEGATIVE) 03/10/18 05:45 Alcohol, Quantitative < 10 mg/dL (0-10) 03/09/18 23:05 Attending/Attestation - Attestation I have personally seen and examined this patient.: Yes I have fully participated in the care of the patient.: Yes I have reviewed all pertinent clinical information, including history, physical exam and plan: Yes Notes (Text): 03/12/18 15:28 Attending note; Patient seen and examined with resident. Patient is a 22-year-old male from [facility] with a past medical history of cerebral palsy, ? injury, right hand atrophy with weakness, cognitive impairment is admitted with recurrent seizures. Patient was on Keppra and carbamazepine. Keppra level was normal. Carbamazepine level was elevated. CT head showed significant encephalomalacia on the left side .no acute infarct noted . Neurology evaluation appreciated. dosage of Keppra increased. Carbamazepine explained discontinued. Started on valproic acid. PT evaluation appreciated. Patient will be discharged home with mother today. Patient will be referred to [facility] upon [place]. 03/12/18 15:28
[2018-03-12 14:57] VITALS: BP 115/63; PULSE 80; RESP 18; TEMP 98.6
== END 2018-03-12 18:36 | disposition home or self-care (01) | DRG 101 ==
LOC: ED 21:22 → ERH 03-10 02:13 → 5RNO 03-10 04:06
PROVIDERS: ADMIT Internal Medicine; ATTEND Internal Medicine
DX: G40.909 Epilepsy, unspecified, not intractable, without status epilepticus (principal); G93.89 Other specified disorders of brain; G80.9 Cerebral palsy, unspecified; Z86.73 Personal history of transient ischemic attack (TIA), and cerebral infarction without residual deficits